=== PATIENT | male | born 1955 | race Caucasian/White ===

== ENCOUNTER 2024-07-11 23:44 | Emergency (ER) | payer OTHER ==
--- OUTSIDE RECORDS SUMMARY | 2024-07-11 23:49 | XMS REPORT | Continuity of Care Document ---
Author Name Unknown Address [address] [facility] [address] [place] [address] [facility] Address [address] 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 Attending Clinician UnavailKhris Reveles Attending Clinician + [phone] Cliff OLIVIER, Sendblair K.H. Attending Clinician + [phone] Gina Miguel Attending Clinician [phone] GINA BANKS Attending Clinician Unavailable GINA BANKS Attending Clinician Unavailable SRINIVAS HODGSON Attending Clinician Unavail able SRINIVAS HODGSON Attending Clinician Unavail able Srinivas Hodgson MD Attending Clinician [phone] Cliff OLIVIER, Sendblair K.H. Attending Clinician + [phone], [facility] Attending Clinician Unavailable SONYA MICHEL Attending Clinician Unavailable Sonya Michel MD Attending Clinician [phone] BRENDA ELMORE Attending Clinician Unavailab BRENDA Sosa Attending Clinician Unavailab Sun Bush Attending Clinician [phone] PAU VALENZUELA Attending Clinician Unavailable PAU VALENZUELA Attending Clinician Unavailable KVNG HANKS Attending Clinician Unavailable Kvng Hanks MD Attending Clinician [phone] Doctor Unassigned, Ink[place] Attending Clinician U clementailNAI Tello Attending Clinician Unavailable Nayeli SALES AND BUSINESS DEVELOPMENT MANAGER, Cynyoselin Attending Clinician +[phone] Ren OLIVIER, Angelo Attending Clinician [phone] ANGELO MCCLURE Attending Clinician Unavailable BO SUN Kirk Attending Clinician Unavailable Sumanth WASHINGTON, Kira Edmond Attending Clinician [phone] Lety OLIVIER, Radha Krause Attending Clinician + Leroy Davidson Attending Clinician [phone] Remi RAO, Ana Wang Attending Clinician Unavailab Donato GABRIEL, Maya Wells Attending Clinician [phone] Chapo OLIVIER, Mehran Attending Clinician [phone] Calderon OLIVIER, Andry Moncada Attending Clinici an RADHA DAVIDSON Attending Clinician Unav bienvenido Drake MD, Breezy Caceres Attending Clinician [phone] CHRISTIAN PATEL Attending Clinician Unavailable Christian Patel MD Attending Clinician [phone] Lorelei Crockett DO Attending Clinician [phone] Chad Lucero MD Attending Clinician [phone] Sergio Drummond DO Attending Clinician +[phone] SERGIO DRUMMOND Attending Clinician Unavailable Neisha RAO, Lucia Attending Clinician Unavailable Steven OLIVIER, Juan Attending Clinician [phone] Linette SMITH, Herbert Salmeron Attending Clinician +[phone] Alison Elizondo MD Attending Clini dirk NAI DENNY Admitting Clinician Unavailable Mehran Cowan MD Admitting Clinician [phone] MEHRAN COWAN Admitting Clinician Unavailable CHRISTIAN PATEL Admitting Clinician Unavailable Chad Lucero MD Admitting Clinician [phone] Linette SMITH, Herbertrachael Salmeron Admitting Clinician [phone] Caro OLIVIER, Alison Crawford Admitting Clini dirk Payers Payer Name Policy Type Policy Number Effective Date Expirati on Date Source Problems Condition Name Condition Details Condition Category Status Onset Date Resolution Date Last Treatment Date Treating Clinician Comments Source 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 Added automatic ally from request for surgery [id number] [facility] NSTEMI (non-ST elevated myocardial infarction ) NSTEMI (non-ST elevated myocardial infarction ) Disease Active 07-22 00:00: 00 [facility] Elevated troponin Elevated troponin Disease Active 02-27 00:00: 00 [facility] Elevated troponin Elevated troponin Disease Active 02-27 00:00: 00 [facility] Appendicit is Appendicit is Disease Active 2016-0215 00:00: [address] [facility] ST elevation myocardial infarction involving right coronary artery ST elevation myocardial infarction involving right coronary artery Disease Active 08-22 00:00: 00 [facility] Chest pain Chest pain Disease Active 08-21 00:00: 00 [facility] ACS (acute coronary syndrome) ACS (acute coronary syndrome) Disease Active 11-10 00:00: 00 [facility] Snake bite Snake bite Disease Active 08-15 00:00: 00 [facility] CAD (coronary artery disease) CAD (coronary artery disease) Disease Active 08-15 00:00: 00 [facility] HTN (hypertens ion) HTN (hypertens ion) Disease Active [facility] HLD (hyperlipi demia) HLD (hyperlipi demia) Disease Active [facility] Allergies, Adverse Reactions, Alerts Allergy Name Allergy Type Status Severity Reaction(s) Onset Date Inactive Date Treating Clinician Comments Source DIAZEPAM DRUG INGREDI Active Anaphylaxis 02-27 00:00: 00 [facility] Diazepam Propensi ty to adverse reaction s Active Anaphylaxis 02-27 00:00: 00 [facility] PENICILL IN DRUG INGREDI Active Rash 08-15 00:00: 00 [facility] Penicill in Propensi ty to adverse reaction s Active Rash 08-15 00:00: 00 [facility] Social History Social Habit Start Date Stop Date Quantity Comments Source Gender identity [facility] History of Occupation [facility] History of tobacco use Cigarette Smoker [facility] History SDOH Alcohol Frequency [facility] History SDOH Alcohol Std Drinks [facility] History SDOH Alcohol Binge [facility] Alcoholic beverage intake 2024-04-17 00:00:00 2024-04-17 00:00:00 3.29 /d [facility] Cigarettes smoked current (pack per day) - Reported 2023-10-07 00:00:00 2023-10-07 00:00:00 [facility] Cigarette pack-years 2023-10-07 00:00:00 2023-10-07 00:00:00 [facility] Tobacco use and exposure 2023-10-07 00:00:00 2023-10-07 00:00:00 Smokeless tobacco non-user [facility] History of Social function 2023-06-07 00:00:00 2023-06-07 00:00:00 [facility] Alcohol intake 2023-06-07 00:00:00 2023-06-07 00:00:00 3.29 /d [facility] Exposure to SARS-CoV-2 (event) 2022-02-08 00:00:00 2022-02-18 10:01:00 Not sure [facility] Alcohol Comment 2021-09-01 00:00:00 2021-09-01 00:00:00 2 beers daily w/ everclear (200 proof liquor) [facility] Tobacco Comment 2021-09-01 00:00:00 2021-09-01 00:00:00 Smoke weed, stopped cigarettes in 1998 [facility] Sex assigned at 1955 00:00:00 1955 00:00:00 [facility] Smoking Status Start Date Stop Date Source Ex-smoker 2023-10-07 00:00:00 2023-10-07 00:00:00 [facility] Medications Ordered Medication Name Filled Medication Name Start Date Stop Date Current Medication? Ordering Clinician Indication Dosage Frequency Signature (SIG) Comments Components Source erythromyci n 5 mg/gram (0.5 %) ophthalmic ointment 07-11 00:00: 00 07-17 04:59 :00 Yes [id number] .5[in_u s] Place 0.5 Inches in left eye 4 times daily for 5 days. Continue until you follow up with eye doctor. [facility] METOPROLOL SUCCINATE XL 50 mg 24 hr tablet 07-04 00:00: 00 Yes 50mg TAKE 1 TABLET BY MOUTH IN THE MORNING AND 1 TABLET IN THE EVENING [facility] doxycycline hyclate 100 mg capsule 04-17 00:00: 00 05-02 04:59 :00 Yes [id number] 100mg Take 1 capsule by mouth in the morning and 1 capsule in the evening. Do all this for 14 days. [facility] clotrimazol e 1 % topical cream 04-17 00:00: 00 04-28 05:59 :00 Yes [id number] Apply to area(s) 2 (two) times daily for 10 days. [facility] nitroglycer in 0.4 mg sublingual tablet 2023-0230 00:00: 00 Yes [id number] DISSOLVE ONE TABLET UNDER THE TONGUE EVERY 5 MINUTES NEEDED FOR CHEST PAIN. DO NOT EXCEED A TOTAL OF 3 DOSES IN 15 MINUTES [facility] cefTRIAXone (ROCEPHIN) injection 500 mg 2023-02 14:15: 00 01-06 13:46 :00 No 500mg 500 mg, Intramuscu lar, ONCE, 1 dose, On 01/07/24 at 0815, EJ, Reason for Anti-Infec tive: Documented Infection, Documented Infection Site: Urine, Duration of Therapy: Once (ED) [facility] doxycycline hyclate 100 mg capsule 2023-02 00:00: 00 01-21 05:59 :00 No [id number] 100mg Take 1 capsule by mouth in the morning and 1 capsule in the evening. Do all this for 14 days. [facility] bempedoic acid (NEXLETOL) 180 mg Tab 08-30 00:00: 00 Yes 180mg Take 180 mg by mouth in the morning. [facility] ezetimibe 10 mg tablet 06-19 00:00: 00 Yes [id number] 10mg Take 1 tablet by mouth in the morning. Please have labs done in 2 months [facility] empaglifloz in (JARDIANCE) 10 mg tablet empaglifloz in (JARDIANCE) 10 mg tablet 06-19 00:00: 00 Yes [id number] 10mg Take 1 tablet by mouth in the morning. [facility] metoprolol succinate XL 50 mg 24 hr tablet 06-06 00:00: 00 07-04 00:00 :00 No 50mg Take 1 tablet by mouth in the morning and 1 tablet in the evening. [facility] atorvastati n 80 mg tablet 04-06 00:00: 00 Yes [id number] 80mg Take 1 tablet by mouth at bedtime. [facility] losartan 50 mg tablet 04-06 00:00: 00 Yes [id number] 50mg Take 1 tablet by mouth in the morning and 1 tablet in the evening. [facility] clopidogreL (PLAVIX) 75 mg tablet 2-14 00:00: 00 Yes [id number] 75mg Take 1 tablet by mouth in the morning. [facility] metoprolol succinate XL 50 mg 24 hr tablet -14 00:00: 00 06-06 00:00 :00 No [id number] 50mg Take 1 tablet by mouth in the morning. [facility] doxycycline hyclate 100 mg capsule - 00:00: 00 Yes [id number] 100mg Take 1 capsule by mouth in the morning and 1 capsule in the evening. [facility] doxycycline hyclate (Vibramycin ) capsule 100 mg 2022-02 11:45: 00 12-25 11:54 :00 No 100mg 100 mg, Oral, ONCE, 1 dose, On 12/25/22 at 0645, EJ
Re ason for Anti-Infec tive: Documented Infection< br>Documen martita Infection Site: Skin / Soft Tissue
Duration of Therapy: 10 days [facility] doxycycline hyclate 100 mg capsule 2022-02 00:00: 00 04-05 00:00 :00 No [id number] 100mg Take 1 capsule by mouth in the morning and 1 capsule in the evening. [facility] METOPROLOL SUCCINATE XL 50 mg 24 hr tablet 2022-02 0-20 00:00: 00 04-06 00:00 :00 No [id number] 50mg TAKE 1 TABLET BY MOUTH IN THE MORNING [facility] azithromyci n (ZITHROMAX) tablet 2,000 mg 9- 02:45: 00 10-22 02:46 :00 No 2000mg 2,000 mg, Oral, ONCE, 1 dose, On Elvira 10/21/22 at 2145, EJ
Re ason for Anti-Infec tive: Empiric Therapy for Suspected Infection< br>Empiric Therapy Site: Pelvic
Duration of therapy: 72 hours [facility] doxycycline hyclate 100 mg capsule 8-31 00:00: 00 12-25 00:00 :00 No [id number] 100mg Take 1 capsule by mouth in the morning and 1 capsule in the evening. [facility] metoprolol tartrate 50 mg tablet 2021-02 0 08:48: 34 12-15 00:00 :00 No 50mg Take 50 mg by mouth in the morning and 50 mg in the evening. [facility] Blood-Gl & BP Meter,Adult [place] 2021-02 0 00:00: 00 Yes [id number] Use as directed [facility] Blood-Gl & BP Meter,Adult [place] 2021-02 00:00: 00 Yes [id number] Use as directed [facility] spironolact one 25 mg tablet 2021-02 00:00: 00 04-06 00:00 :00 No [id number] 25mg Take 1 tablet by mouth in the morning. [facility] losartan 50 mg tablet 2021-02 00:00: 00 04-06 00:00 :00 No [id number] 50mg Take 1 tablet by mouth in the morning and 1 tablet in the evening. [facility] carvediloL (COREG) 25 mg tablet 2021-02 0 00:00: 00 04-06 00:00 :00 No [id number] 25mg Take 1 tablet by mouth in the morning and 1 tablet in the evening. Take with meals. [facility] sacubitriL- valsartan 24-26 mg tablet 2021-02 0 00:00: 00 12-15 00:00 :00 No [id number] 1{tbl} Take 1 tablet by mouth in the morning and 1 tablet in the evening. [facility] metoprolol succinate XL 50 mg 24 hr tablet 2021-02 0 00:00: 00 12-15 00:00 :00 No [id number] 50mg Take 1 tablet by mouth in the morning. [facility] foLIC acid 1 mg tablet 7-16 00:00: 00 Yes 1mg Take 1 tablet by mouth in the morning. [facility] thiamine 100 mg tablet 09-05 00:00: 00 Yes 100mg Take 1 tablet by mouth in the morning. [facility] atorvastati n 80 mg tablet 09-05 00:00: 00 04-06 00:00 :00 No [id number] 80mg Take 1 tablet by mouth at bedtime. [facility] spironolact one 25 mg tablet 09-05 00:00: 00 10-06 04:59 :00 No [id number] 9109 25mg Take 1 tablet by mouth in the morning for 30 days. [facility] SERTraline 50 mg tablet 09-05 00:00: 00 10-06 04:59 :00 No [id number] 50mg Take 1 tablet by mouth in the morning for 30 days. [facility] ezetimibe 10 mg tablet 09-05 00:00: 00 10-06 04:59 :00 No [id number] 10mg Take 1 tablet by mouth in the morning for 30 days. [facility] carvediloL 25 mg tablet 09-05 00:00: 00 10-06 04:59 :00 No [id number] 9109 25mg Take 1 tablet by mouth in the morning and 1 tablet in the evening. Take with meals. Do all this for 30 days. [facility] losartan 50 mg tablet 09-05 00:00: 00 10-06 04:59 :00 No [id number] 50mg Take 1 tablet by mouth in the morning and 1 tablet in the evening. Do all this for 30 days. [facility] nitroglycer in 0.4 mg sublingual tablet 2020-02 00:00: 00 02-19 00:00 :[id number] 1 tablet under the tongue every 5 (five) minutes as needed for Chest pain for up to 30 doses. [facility] clopidogreL (PLAVIX) 75 mg tablet 2020-02 00:00: 00 04-06 00:00 :00 No [id number] 75mg Take 1 tablet by mouth daily. [facility] aspirin 81 mg chewable tablet 07-23 00:00: 00 Yes [id number] 81mg Take 1 tablet by mouth daily. [facility] Immunizations Ordered Immunization Name Filled Immunization Name Date Status Comments Source Pneumococcal Polysaccharide, PPSV23 (PNEUMOVAX) 2015-11-12 00:00:00 Completed [facility] Pneumococcal Polysaccharide, PPSV23 (PNEUMOVAX) 2015-11-12 00:00:00 Completed [facility] Pneumococcal Polysaccharide, PPSV23 (PNEUMOVAX) 2015-11-12 00:00:00 Completed [facility] Pneumococcal Polysaccharide, PPSV23 (PNEUMOVAX) 2015-11-12 00:00:00 Completed [facility] Pneumococcal Polysaccharide, PPSV23 (PNEUMOVAX) 2015-11-12 00:00:00 Completed [facility] Pneumococcal Polysaccharide, PPSV23 (PNEUMOVAX) 2015-11-12 00:00:00 Completed [facility] Pneumococcal Polysaccharide, PPSV23 (PNEUMOVAX) 2015-11-12 00:00:00 Completed [facility] Pneumococcal Polysaccharide, PPSV23 (PNEUMOVAX) 2015-11-12 00:00:00 Completed [facility] Pneumococcal Polysaccharide, PPSV23 (PNEUMOVAX) 2015-11-12 00:00:00 Completed [facility] Pneumococcal Polysaccharide, PPSV23 (PNEUMOVAX) 2015-11-12 00:00:00 Completed [facility] Pneumococcal Polysaccharide, PPSV23 (PNEUMOVAX) 2015-11-12 00:00:00 Completed [facility] Pneumococcal Polysaccharide, PPSV23 (PNEUMOVAX) 2015-11-12 00:00:00 Completed [facility] Pneumococcal Polysaccharide, PPSV23 (PNEUMOVAX) 2015-11-12 00:00:00 Completed [facility] Pneumococcal Polysaccharide, PPSV23 (PNEUMOVAX) 2015-11-12 00:00:00 Completed [facility] Pneumococcal Polysaccharide, PPSV23 (PNEUMOVAX) 2015-11-12 00:00:00 Completed [facility] Pneumococcal Polysaccharide, PPSV23 (PNEUMOVAX) 2015-11-12 00:00:00 Completed [facility] Pneumococcal Polysaccharide, PPSV23 (PNEUMOVAX) 2015-11-12 00:00:00 Completed [facility] Pneumococcal Polysaccharide, PPSV23 (PNEUMOVAX) 2015-11-12 00:00:00 Completed [facility] Pneumococcal Polysaccharide, PPSV23 (PNEUMOVAX) 2015-11-12 00:00:00 Completed [facility] Pneumococcal Polysaccharide, PPSV23 (PNEUMOVAX) 2015-11-12 00:00:00 Completed [facility] Td 2015-08-17 00:00:00 Completed [facility] Td 2015-08-17 00:00:00 Completed [facility] Td 2015-08-17 00:00:00 Completed [facility] Td 2015-08-17 00:00:00 Completed [facility] Td 2015-08-17 00:00:00 Completed [facility] Td 2015-08-17 00:00:00 Completed [facility] Td 2015-08-17 00:00:00 Completed [facility] Td 2015-08-17 00:00:00 Completed [facility] Td 2015-08-17 00:00:00 Completed [facility] Td 2015-08-17 00:00:00 Completed [facility] Td 2015-08-17 00:00:00 Completed [facility] Td 2015-08-17 00:00:00 Completed [facility] TD, NOS 2015-08-17 00:00:00 Completed [facility] TD, NOS 2015-08-17 00:00:00 Completed [facility] TD, NOS 2015-08-17 00:00:00 Completed [facility] TD, NOS 2015-08-17 00:00:00 Completed [facility] TD, NOS 2015-08-17 00:00:00 Completed [facility] TD, NOS 2015-08-17 00:00:00 Completed [facility] TD, NOS 2015-08-17 00:00:00 Completed [facility] TD, NOS 2015-08-17 00:00:00 Completed [facility] TD, NOS Unknown Completed [facility] Pneumococcal Polysaccharide, PPSV23 (PNEUMOVAX) Unknown Completed [facility] TD, NOS Unknown Completed [facility] Pneumococcal Polysaccharide, PPSV23 (PNEUMOVAX) Unknown Completed [facility] TD, NOS Unknown Completed [facility] Pneumococcal Polysaccharide, PPSV23 (PNEUMOVAX) Unknown Completed [facility] TD, NOS Unknown Completed [facility] Pneumococcal Polysaccharide, PPSV23 (PNEUMOVAX) Unknown Completed [facility] TD, NOS Unknown Completed [facility] Pneumococcal Polysaccharide, PPSV23 (PNEUMOVAX) Unknown Completed [facility] TD, NOS Unknown Completed [facility] Pneumococcal Polysaccharide, PPSV23 (PNEUMOVAX) Unknown Completed [facility] TD, NOS Unknown Completed [facility] Pneumococcal Polysaccharide, PPSV23 (PNEUMOVAX) Unknown Completed [facility] TD, NOS Unknown Completed [facility] Pneumococcal Polysaccharide, PPSV23 (PNEUMOVAX) Unknown Completed [facility] TD, NOS Unknown Completed [facility] Pneumococcal Polysaccharide, PPSV23 (PNEUMOVAX) Unknown Completed [facility] TD, NOS Unknown Completed [facility] Pneumococcal Polysaccharide, PPSV23 (PNEUMOVAX) Unknown Completed [facility] TD, NOS Unknown Completed [facility] Pneumococcal Polysaccharide, PPSV23 (PNEUMOVAX) Unknown Completed [facility] TD, NOS Unknown Completed [facility] Pneumococcal Polysaccharide, PPSV23 (PNEUMOVAX) Unknown Completed [facility] TD, NOS Unknown Completed [facility] Pneumococcal Polysaccharide, PPSV23 (PNEUMOVAX) Unknown Completed [facility] TD, NOS Unknown Completed [facility] Pneumococcal Polysaccharide, PPSV23 (PNEUMOVAX) Unknown Completed [facility] TD, NOS Unknown Completed [facility] Pneumococcal Polysaccharide, PPSV23 (PNEUMOVAX) Unknown Completed [facility] TD, NOS Unknown Completed [facility] Pneumococcal Polysaccharide, PPSV23 (PNEUMOVAX) Unknown Completed [facility] Vital Signs Vital Name Observation Time Observation Value Comments S ource Systolic blood pressure 2024-07-12 02:51:00 138 mm[Hg] [facility] Diastolic blood pressure 2024-07-12 02:51:00 76 mm[Hg] [facility] Heart rate 2024-07-12 02:51:00 60 /min [facility] Body temperature 2024-07-12 02:51:00 36.61 Patricia [facility] Respiratory rate 2024-07-12 02:51:00 16 /min [facility] Body height 2024-07-12 02:51:00 188 cm [facility] Body weight 2024-07-12 02:51:00 74.844 kg [facility] BMI 2024-07-12 02:51:00 21.18 kg/m2 [facility] Oxygen saturation in Arterial blood by Pulse oximetry 2024-07-12 02:51:00 99 /min [facility] Systolic blood pressure 2024-04-17 09:30:00 175 mm[Hg] [facility] Diastolic blood pressure 2024-04-17 09:30:00 87 mm[Hg] [facility] Heart rate 2024-04-17 09:30:00 62 /min [facility] Body temperature 2024-04-17 09:30:00 36.78 Patricia [facility] Respiratory rate 2024-04-17 09:30:00 18 /min [facility] Oxygen saturation in Arterial blood by Pulse oximetry 2024-04-17 09:30:00 98 /min [facility] Body height 2024-04-17 07:14:00 182.9 cm [facility] Body weight 2024-04-17 07:14:00 75.887 kg [facility] BMI 2024-04-17 07:14:00 22.69 kg/m2 [facility] Systolic blood pressure 2024-04-10 14:57:00 139 mm[Hg] [facility] Diastolic blood pressure 2024-04-10 14:57:00 79 mm[Hg] [facility] Heart rate 2024-04-10 14:57:00 50 /min [facility] Respiratory rate 2024-04-10 14:57:00 18 /min [facility] Body height 2024-04-10 14:57:00 188 cm [facility] Body weight 2024-04-10 14:57:00 76.023 kg [facility] BMI 2024-04-10 14:57:00 21.52 kg/m2 [facility] Oxygen saturation in Arterial blood by Pulse oximetry 2024-04-10 14:57:00 98 /min [facility] Systolic blood pressure 2024-01-07 15:02:00 142 mm[Hg] [facility] Diastolic blood pressure 2024-01-07 15:02:00 68 mm[Hg] [facility] Heart rate 2024-01-07 15:02:00 54 /min [facility] Body temperature 2024-01-07 15:02:00 36.56 Patricia [facility] Respiratory rate 2024-01-07 15:02:00 16 /min [facility] Oxygen saturation in Arterial blood by Pulse oximetry 2024-01-07 15:02:00 99 /min [facility] Body height 2024-01-07 12:24:00 188 cm [facility] Body weight 2024-01-07 12:24:00 72.576 kg [facility] BMI 2024-01-07 12:24:00 20.54 kg/m2 [facility] Systolic blood pressure 2023-10-07 14:36:00 138 mm[Hg] [facility] Diastolic blood pressure 2023-10-07 14:36:00 65 mm[Hg] [facility] Heart rate 2023-10-07 14:36:00 49 /min [facility] Respiratory rate 2023-10-07 14:36:00 19 /min [facility] Body height 2023-10-07 14:36:00 185.4 cm [facility] Body weight 2023-10-07 14:36:00 74.481 kg [facility] BMI 2023-10-07 14:36:00 21.66 kg/m2 [facility] Oxygen saturation in Arterial blood by Pulse oximetry 2023-10-07 14:36:00 99 /min [facility] Systolic blood pressure 2023-06-07 13:52:00 122 mm[Hg] [facility] Diastolic blood pressure 2023-06-07 13:52:00 61 mm[Hg] [facility] Heart rate 2023-06-07 13:52:00 67 /min [facility] Body temperature 2023-06-07 13:52:00 36.22 Patricia [facility] Respiratory rate 2023-06-07 13:52:00 18 /min [facility] Body height 2023-06-07 13:52:[address] [facility] Body weight 2023-06-07 13:52:00 76.25 kg [facility] BMI 2023-06-07 13:52:00 21.58 kg/m2 [facility] Oxygen saturation in Arterial blood by Pulse oximetry 2023-06-07 13:52:00 98 /min [facility] Systolic blood pressure 2023-04-06 19:09:00 137 mm[Hg] [facility] Diastolic blood pressure 2023-04-06 19:09:00 88 mm[Hg] [facility] Heart rate 2023-04-06 19:09:00 77 /min [facility] Body temperature 2023-04-06 19:09:00 36.78 Patricia [facility] Respiratory rate 2023-04-06 19:09:00 18 /min [facility] Body height 2023-04-06 19:09:[address] [facility] Body weight 2023-04-06 19:09:00 74.753 kg [facility] BMI 2023-04-06 19:09:00 21.16 kg/m2 [facility] Oxygen saturation in Arterial blood by Pulse oximetry 2023-04-06 19:09:00 99 /min [facility] Systolic blood pressure 2023-04-05 14:57:00 202 mm[Hg] [facility] Diastolic blood pressure 2023-04-05 14:57:00 110 mm[Hg] [facility] Heart rate 2023-04-05 14:57:00 100 /min [facility] Body temperature 2023-04-05 14:57:00 36.89 Patricia [facility] Respiratory rate 2023-04-05 14:57:00 20 /min [facility] Body height 2023-04-05 14:57:00 188 cm [facility] Body weight 2023-04-05 14:57:00 70.308 kg [facility] BMI 2023-04-05 14:57:00 19.90 kg/m2 [facility] Oxygen saturation in Arterial blood by Pulse oximetry 2023-04-05 14:57:00 100 /min [facility] Systolic blood pressure 2022-12-25 12:15:57 140 mm[Hg] [facility] Diastolic blood pressure 2022-12-25 12:15:57 72 mm[Hg] [facility] Heart rate 2022-12-25 12:15:57 50 /min [facility] Respiratory rate 2022-12-25 12:15:57 20 /min [facility] Oxygen saturation in Arterial blood by Pulse oximetry 2022-12-25 12:15:57 100 /min [facility] Body temperature 2022-12-25 11:16:00 36.33 Patricia [facility] Body weight 2022-12-25 11:16:00 72.576 kg [facility] BMI 2022-12-25 11:16:00 21.70 kg/m2 [facility] Systolic blood pressure 2022-10-22 02:42:33 160 mm[Hg] [facility] Diastolic blood pressure 2022-10-22 02:42:33 90 mm[Hg] [facility] Heart rate 2022-10-22 02:42:33 70 /min [facility] Respiratory rate 2022-10-22 02:42:33 16 /min [facility] Oxygen saturation in Arterial blood by Pulse oximetry 2022-10-22 02:42:33 98 /min [facility] Body temperature 2022-10-22 02:08:00 36.78 Patricia [facility] Body height 2022-10-22 02:08:00 182.9 cm [facility] Body weight 2022-10-22 02:08:[address] [facility] BMI 2022-10-22 02:08:00 20.34 kg/m2 Univ [facility] Systolic blood pressure 2022-08-24 04:30:00 176 mm[Hg] [facility] Diastolic blood pressure 2022-08-24 04:30:00 90 mm[Hg] [facility] Heart rate 2022-08-24 04:30:00 87 /min [facility] Body temperature 2022-08-24 04:30:00 37 Patricia [facility] Respiratory rate 2022-08-24 04:30:00 17 /min [facility] Body height 2022-08-24 04:30:00 188 cm [facility] Body weight 2022-08-24 04:30:00 72.576 kg [facility] BMI 2022-08-24 04:30:00 20.54 kg/m2 [facility] Oxygen saturation in Arterial blood by Pulse oximetry 2022-08-24 04:30:00 97 /min [facility] Systolic blood pressure 2021-12-31 16:08:00 119 mm[Hg] [facility] Diastolic blood pressure 2021-12-31 16:08:00 58 mm[Hg] [facility] Heart rate 2021-12-31 16:08:00 50 /min [facility] Body temperature 2021-12-31 16:08:00 36.28 Patricia [facility] Body weight 2021-12-31 16:08:00 71.804 kg [facility] BMI 2021-12-31 16:08:00 20.32 kg/m2 [facility] Oxygen saturation in Arterial blood by Pulse oximetry 2021-12-31 16:08:00 99 /min [facility] Systolic blood pressure 2021-12-15 21:14:00 144 mm[Hg] [facility] Diastolic blood pressure 2021-12-15 21:14:00 76 mm[Hg] [facility] Heart rate 2021-12-15 21:14:00 64 /min [facility] Body temperature 2021-12-15 21:14:00 36.44 Patricia [facility] Respiratory rate 2021-12-15 21:14:00 18 /min [facility] Body weight 2021-12-15 21:14:00 71.668 kg [facility] BMI 2021-12-15 21:14:00 20.29 kg/m2 [facility] Oxygen saturation in Arterial blood by Pulse oximetry 2021-12-15 21:14:00 98 /min [facility] Systolic blood pressure 2021-12-15 13:12:00 161 mm[Hg] [facility] Diastolic blood pressure 2021-12-15 13:12:00 77 mm[Hg] [facility] Heart rate 2021-12-15 13:08:00 57 /min [facility] Body weight 2021-12-15 13:08:00 71.668 kg [facility] BMI 2021-12-15 13:08:00 20.29 kg/m2 [facility] Oxygen saturation in Arterial blood by Pulse oximetry 2021-12-15 13:08:00 100 /min [facility] Procedures Procedure Date / Time Performed Performing Clinician Source URINALYSIS 2024-04-17 07:52:00 Gina Banks [facility] HIV 1/2 AG-AB WITH REFLEX 2024-04-17 07:33:00 Gina Banks [facility] URINALYSIS 2024-01-07 14:17:00 Srinivas Hodgson [facility] COMP. METABOLIC PANEL (36423) 2023-06-13 13:10:00 Renita Joyner [facility] LIPID PANEL (57207)(TOTAL CHOLESTEROL, TRIGLYCERIDES, HDL) 2023-06-13 13:10:00 Renita Joyner [facility] CBC WITH DIFF 2023-06-13 13:10:00 Renita Joyner [facility] GLYCOSYLATED HEMOGLOBIN (A1C) 2023-06-13 13:10:00 Renita Joyner [facility] ASSIGNMENT OF BENEFITS 2023-04-05 15:24:04 Docto r Unassigned, [place] [facility] CONSENT/REFUSAL FOR DIAGNOSIS AND TREATMENT 2023-04-05 14:49:25 Doctor Unassigned, [place] [facility] CONSENT/REFUSAL FOR DIAGNOSIS AND TREATMENT 2022-12-25 11:11:03 Doctor Unassigned, [place] [facility] BASIC METABOLIC PANEL (NA, K, CL, CO2, GLUCOSE, BUN, CREATININE, CA) 2022-10-22 02:46:00 Kvng Hanks [facility] CBC WITH DIFF 2022-10-22 02:46:00 Kvng Hanks [facility] CONSENT/REFUSAL FOR DIAGNOSIS AND TREATMENT 2022-10-22 02:04:48 Doctor Unassigned, [place] [facility] INSURANCE CORRESPONDENCE 2022-09-28 05:01:00 Doc tor Unassigned, [place] [facility] ASSIGNMENT OF BENEFITS 2022-08-24 06:00:53 Docto r Unassigned, [place] [facility] XR CHEST 2 VW 2022-08-24 05:38:[address] [facility] RAPID STREP SCREEN FOR GROUP A 2022-08-24 04:45:00 Nai Denny [facility] RAPID INFLUENZA A/B 2022-08-24 04:45:00 Nai Denny [facility] COVID-19 (ID NOW RAPID TESTING) 2022-08-24 04:45:00 Nai Denny [facility] INSURANCE CORRESPONDENCE 2022-06-21 05:01:00 Doc tor Unassigned, [place] [facility] INSURANCE CORRESPONDENCE 2022-04-21 06:01:00 Doc tor Unassigned, [place] [facility] INSURANCE CORRESPONDENCE 2022-03-16 06:01:00 Doc tor Unassigned, [place] [facility] AUTHORIZATION FOR RELEASE OF PHI 2021-12-17 05:01:00 Doctor Unassigned, [place] [facility] BASIC METABOLIC PANEL (NA, K, CL, CO2, GLUCOSE, BUN, CREATININE, CA) 2021-12-15 21:23:00 Kira Julio [facility] ASSIGNMENT OF BENEFITS 2021-12-15 13:00:17 Docto r Unassigned, [place] [facility] Plan of Care Planned Activity Planned Date Details Comments Source Medication 2024-07-12 03:45:00 fluorescein (FUL-MEGAN) 1 mg ophthalmic strip 1 Strip [code = 77154] [facility] Medication 2024-07-12 03:45:00 tetracaine (PONTOCAINE) 0.5 % ophthalmic drops 1 Drop [code = 9501420] [facility] Encounters Start Date/Time End Date/Time Encounter Type Admission Type Attending [facility] Care Department Encounter ID Source 2024-10-08 10:00:00 2024-10-08 10:00:00 Outpatient R RENITA JOYNER [facility] [id number] [facility] 2024-07-11 21:54:00 2024-07-11 22:19:00 Emergency Khris Morley [facility] 1.840.114 350.1.13.10 4.2.7.2.686 [id number] [facility] 2024-07-04 00:00:00 2024-07-04 13:54:26 Renita Lam [facility] 1..840.114 350.1.13.10 4.2.7.2.686 [id number] [facility] 2024-05-16 08:00:00 2024-05-16 08:00:00 Outpatient R [facility] [id number] [facility] 2024-04-17 01:17:00 2024-04-17 03:37:00 Emergency Gina Banks [facility] 1..840.114 350.1.13.10 4.2.7.2.686 [id number] [facility] 2024-04-17 01:17:00 2024-04-17 03:37:00 Emergency X GINA BANKS [facility] ERT [id number] [facility] 2024-04-10 09:00:00 2024-04-10 09:21:35 Outpatient R RENITA JOYNER [facility] [id number] [facility] 2024-04-10 09:00:00 2024-04-10 09:21:35 Office Visit Renita Joyner [facility] 1.2.840.114 350.1.13.10 4.2.7.2.686 [id number] [facility] 2024-02-17 00:00:00 2024-02-20 10:09:12 Refill Renita Joyner [facility] 1.2.840.114 350.1.13.10 4.2.7.2.686 [id number] [facility] 2024-01-07 06:30:00 2024-01-07 09:21:00 Emergency X SRINIVAS HODGSON JO[facility]PH [facility] ERT [id number] [facility] 2024-01-07 06:30:00 2024-01-07 09:21:00 Emergency Srinivas Hodgson [facility] 1.2.840.114 350.1.13.10 4.2.7.2.686 [id number] [facility] 2023-10-07 09:30:00 2023-10-07 10:15:59 Outpatient R RENITA JOYNER [facility] [id number] [facility] 2023-10-07 09:30:00 2023-10-07 10:15:59 Office Visit Renita Joyner [facility] 1.2.840.114 350.1.13.10 4.2.7.2.686 [id number] [facility] 2023-09-06 00:00:00 2023-09-06 11:46:44 Telephone Renita Joyner [facility] 1.2.840.114 350.1.13.10 4.2.7.2.686 [id number] [facility] 2023-08-31 00:00:00 2023-08-31 09:02:26 Telephone Renita Joyner [facility] 1.2.840.114 350.1.13.10 4.2.7.2.686 [id number] [facility] 2023-08-24 16:15:00 2023-08-24 16:30:00 Application Design Engineer Visit 2, Adc Lab Renita Joyner [facility] 1.2.840.114 350.1.13.10 4.2.7.2.686 [id number] [facility] 2023-08-24 16:15:00 2023-08-24 16:15:00 Outpatient R RENITA JOYNER [facility] [id number] [facility] 2023-06-17 00:00:00 2023-06-17 00:00:00 Telephone Renita Joyner [facility] 1.2.840.114 350.1.13.10 4.2.7.2.686 [id number] [facility] 2023-06-13 08:15:00 2023-06-13 08:32:53 Outpatient R RENITA JOYNER [facility] [id number] [facility] 2023-06-13 08:15:00 2023-06-13 08:32:53 Application Design Engineer Visit 2, Adc Lab Katy Joynerblair AlfredoPj [facility] 1.2.840.114 350.1.13.10 4.2.7.2.686 [id number] [facility] 2023-06-09 00:00:00 2023-06-09 00:00:00 Telephone Renita Joyner AlfredoPj [facility] 1.2.840.114 350.1.13.10 4.2.7.2.686 [id number] [facility] 2023-06-07 09:00:00 2023-06-07 09:12:42 Outpatient R RENITA JOYNER [facility] [id number] [facility] 2023-06-07 09:00:00 2023-06-07 09:12:42 Office Visit Renita Joyner AlfredoPj [facility] 1.2.840.114 350.1.13.10 4.2.7.2.686 [id number] [facility] 2023-04-06 13:20:00 2023-04-06 13:48:00 [facility] [id number] [facility] 2023-04-06 13:20:00 2023-04-06 13:48:00 [facility] 1.2.840.114 350.1.13.10 4.2.7.2.686 [id number] [facility] 2023-04-05 08:59:00 2023-04-05 09:25:00 Emergency X BRENDA ELMORE [facility] ERT [id number] [facility] 2023-04-05 08:59:00 2023-04-05 09:25:00 Emergency Brenda Elmore [facility] 1.2.840.114 350.1.13.10 4.2.7.2.686 [id number] [facility] 2023-04-05 00:00:00 2023-04-05 00:00:00 Refill Sonya Michel [facility] 1.2.840.114 350.1.13.10 4.2.7.2.686 [id number] [facility] 2023-04-04 00:00:00 2023-04-04 00:00:00 Refill Sun [facility] 1.2.840.114 350.1.13.10 4.2.7.2.686 [id number] [facility] 2023-03-15 00:00:00 2023-03-15 00:00:00 Refill Sun Soriano [facility] 1.2.840.114 350.1.13.10 4.2.7.2.686 [id number] [facility] 2022-12-25 06:19:00 2022-12-25 07:33:00 Emergency X PAU VALENZUELA TIMOTHY [facility] [id number] [facility] 2022-12-25 06:19:00 2022-12-25 07:33:00 Emergency Pau Valenzuela [facility] 1.2.840.114 350.1.13.10 4.2.7.2.686 [id number] [facility] 2022-12-08 00:00:00 2022-12-08 00:00:00 Refill Sun Soriano [facility] 1.2.840.114 350.1.13.10 4.2.7.2.686 [id number] [facility] 2022-12-04 00:00:00 2022-12-04 00:00:00 Sun Rubio [facility] 1.2.840.114 350.1.13.10 4.2.7.2.686 [id number] [facility] 2022-10-21 21:09:00 2022-10-21 22:56:00 Emergency X KVNG HANKS [facility] ERT [id number] [facility] 2022-10-21 21:09:00 2022-10-21 22:56:00 Emergency Kvng Hanks [facility] 1.2840.114 350.1.13.10 4.2.7.2.686 [id number] [facility] 2022-09-28 00:00:00 2022-09-28 00:00:00 Orders Only Doctor Unassigned, [place] [facility] 1.2840.114 350.1.13.10 4.2.7.2.686 [id number] [facility] 2022-08-23 23:40:00 2022-08-24 01:14:00 Emergency X NAI DENNY [facility] ERT [id number] [facility] 2022-08-23 23:40:00 2022-08-24 01:14:00 Emergency NayeliNai ibrahim [facility] 1.2.840.114 350.1.13.10 4.2.7.2.686 [id number] [facility] 2022-06-21 00:00:00 2022-06-21 00:00:00 Orders Only Doctor Unassigned, [place] [facility] 1.2840.114 350.1.13.10 4.2.7.2.686 [id number] [facility] 2022-04-21 00:00:00 2022-04-21 00:00:00 Orders Only Doctor Unassigned, [place] [facility] 1.2840.114 350.1.13.10 4.2.7.2.686 [id number] [facility] 2022-03-16 00:00:00 2022-03-16 00:00:00 Orders Only Doctor Unassigned, [place] [facility] 1.2840.114 350.1.13.10 4.2.7.2.686 [id number] [facility] 2022-03-07 00:00:00 2022-03-07 00:00:00 Telephone Angelo Mcclure [facility] 1..840.114 350.1.13.10 4.2.7.2.686 [id number] [facility] 2022-02-18 08:30:00 2022-02-18 23:59:00 Outpatient Guerline MCCLURE ANGELO [facility] [id number] [facility] 2022-02-18 10:20:00 2022-02-18 10:20:00 Outpatient ANGELO PELAYO [facility] [id number] [facility] 2022-02-16 09:00:00 2022-02-16 09:00:00 Outpatient SONYA LAYNE [facility] [id number] [facility] 2022-01-18 16:30:00 2022-01-18 16:30:00 Outpatient R REN ANGELO [facility] [id number] [facility] 2022-01-07 09:40:00 2022-01-07 09:40:00 Outpatient ANGELO PELAYO [facility] [id number] [facility] 2022-01-01 00:00:00 2022-01-01 00:00:00 Telephone Sun Soriano [facility] 1.2.840.114 350.1.13.10 4.2.7.2.686 [id number] [facility] 2021-12-31 08:38:04 2021-12-31 23:59:00 Outpatient R SUN SORIANO [facility] [id number] [facility] 2021-12-31 11:20:00 2021-12-31 11:20:00 Office Visit RenHuseyinf [facility] 1.2840.114 350.1.13.10 4.2.7.2.686 [id number] [facility] 2021-12-17 00:00:00 2021-12-17 00:00:00 Orders Only Doctor Unassigned, [place] [facility] 1.20.114 350.1.13.10 4.2.7.2.686 [id number] [facility] 2021-12-15 16:15:00 2021-12-15 17:22:00 Emergency Kira Julio [facility] 1.20.114 350.1.13.10 4.2.7.2.686 [id number] [facility] 2021-12-15 10:30:00 2021-12-15 10:30:00 Application Design Engineer Visit 2, Adc Lab Sun Soriano [facility] 1.2.114 350.1.13.10 4.2.7.2.686 [id number] [facility] 2021-12-15 08:00:00 2021-12-15 09:08:47 Outpatient R SUN SORIANO [facility] [id number] [facility] 2021-12-15 08:00:00 2021-12-15 09:08:47 Office Visit Sun Soriano [facility] 1.2.114 350.1.13.10 4.2.7.2.686 [id number] [facility] 2021-12-15 08:00:00 2021-12-15 09:08:47 Outpatient R SUN SORIANO ALNADER ERT [id number] [facility] 2021-12-15 00:00:00 2021-12-15 00:00:00 Orders Only Doctor Unassigned, [place] [facility] 1.2.840.114 350.1.13.10 4.2.7.2.686 [id number] [facility] 2021-12-15 00:00:00 2021-12-15 00:00:00 Telephone Sun Soriano [facility] 1.2.840.114 350.1.13.10 4.2.7.2.686 [id number] [facility] 2021-12-15 00:00:00 2021-12-15 00:00:00 Telephone Sun Soriano [facility] 1.2.840.114 350.1.13.10 4.2.7.2.686 [id number] [facility] 2021-10-01 00:00:00 2021-10-01 00:00:00 Letter (Out) Radha Davidson [facility] 1.2.840.114 350.1.13.10 4.2.7.2.686 [id number] [facility] 2021-09-25 00:00:00 2021-09-25 00:00:00 [facility] 1.2.840.114 350.1.13.10 4.2.7.2.686 [id number] [facility] 2021-09-16 00:00:00 2021-09-16 00:00:[address] [facility] 1.2.840.114 350.1.13.10 4.2.7.2.686 [id number] [facility] 2021-09-10 00:00:00 2021-09-10 00:00:00 [facility] 1.2.840.114 350.1.13.10 4.2.7.2.686 [id number] [facility] 2021-09-07 00:00:00 2021-09-07 00:00:00 Transition of Care Ana Khalil 1.2.840.114 350.1.13.10 4.2.7.2.686 [id number] [facility] 2021-08-30 15:24:00 2021-09-05 12:45:00 Hospital Encounter Maya Yan, Mehran Henry, Andry Moncada [facility] 1.2.840.114 350.1.13.10 4.2.7.2.686 [id number] [facility] 2021-08-30 15:24:00 2021-09-05 12:45:00 Inpatient X [facility] [id number] [facility] 2021-09-04 12:00:00 2021-09-04 13:00:00 Surgery Angelo Mcclure [facility] 1.2.840.114 350.1.13.10 4.2.7.2.686 [id number] [facility] 2021-09-02 13:49:00 2021-09-02 15:49:00 Surgery Breezy Drake [facility] 1.2.840.114 350.1.13.10 4.2.7.2.686 [id number] [facility] 2021-09-02 00:00:00 2021-09-02 00:00:00 Telephone Radha Davidson [facility] 1.2840.114 350.1.13.10 4.2.7.2.686 [id number] [facility] 2021-08-11 00:00:00 2021-08-11 00:00:00 Orders Only Doctor Unassigned, [place] [facility] 1.2840.114 350.1.13.10 4.2.7.2.686 [id number] [facility] 2021-05-14 07:47:00 2021-05-14 10:40:00 Emergency X JORGE CHRISTIAN [facility] ERT [id number] [facility] 2021-05-14 07:47:00 2021-05-14 10:40:00 Emergency Christian Patel [facility] 1.2840.114 350.1.13.10 4.2.7.2.686 [id number] [facility] 2021-05-13 00:00:00 2021-05-13 00:00:00 Orders Only Doctor Unassigned, [place] [facility] 1.2840.114 350.1.13.10 4.2.7.2.686 [id number] [facility] 2021-05-08 00:00:00 2021-05-08 00:00:00 Telephone Renita Joyner [facility] 1.2840.114 350.1.13.10 4.2.7.2.686 [id number] [facility] 2021-05-08 00:00:00 2021-05-08 00:00:00 Orders Only Doctor Unassigned, [place] [facility] 1.2840.114 350.1.13.10 4.2.7.2.686 [id number] [facility] 2021-04-20 09:00:00 2021-04-20 09:00:00 Outpatient R RENITA JOYNER [facility] [id number] [facility] 2021-02-17 08:00:00 2021-02-17 08:00:00 Outpatient R RENITA JOYNER [facility] [id number] [facility] 2021-02-03 00:00:00 2021-02-03 00:00:00 Orders Only Doctor Unassigned, [place] [facility] 1..840.114 350.1.13.10 4.2.7.2.686 [id number] [facility] 2021-02-02 13:00:00 2021-02-02 13:00:00 Outpatient R RENITA JOYNER [facility] [id number] [facility] 2021-02-02 11:07:34 2021-02-02 11:55:34 Office Visit Renita JoynerHPj [facility] [id number] 350.1.13.10 4.2.7.2.686 [id number] [facility] 2021-02-02 11:00:00 2021-02-02 11:55:34 Outpatient R RENITA JOYNER [facility] [id number] [facility] 2021-01-26 14:00:00 2021-01-26 14:00:00 Outpatient R RENITA JOYNER [facility] [id number] [facility] 2020-12-26 00:00:00 2020-12-26 00:00:00 Telephone Renita Joyner [facility] 1.2.840.114 350.1.13.10 4.2.7.2.686 [id number] [facility] 2020-10-31 11:03:13 2020-10-31 12:12:29 Office Visit Renita Joyner [facility] 1.2.840.114 350.1.13.10 4.2.7.2.686 [id number] [facility] 2020-10-31 11:00:00 2020-10-31 11:00:00 Outpatient R RENITA JOYNER [facility] [id number] [facility] 2020-10-31 00:00:00 2020-10-31 00:00:00 Orders Only Doctor Unassigned, [place] [facility] 1.2.840.114 350.1.13.10 4.2.7.2.686 [id number] [facility] 2020-10-31 00:00:00 2020-10-31 00:00:00 Telephone Renita Joyner [facility] 1.2.840.114 350.1.13.10 4.2.7.2.686 [id number] [facility] 2020-10-31 00:00:00 2020-10-31 00:00:00 Orders Only Doctor Unassigned, [place] [facility] 1.2.840.114 350.1.13.10 4.2.7.2.686 [id number] [facility] 2020-10-31 00:00:00 2020-10-31 00:00:00 Telephone Renita Joyner [facility] 1.2.840.114 350.1.13.10 4.2.7.2.686 [id number] [facility] 2020-10-29 00:00:00 2020-10-29 00:00:00 Telephone Renita Joyner [facility] 1.2.840.114 350.1.13.10 4.2.7.2.686 [id number] [facility] 2020-10-20 00:00:00 2020-10-20 00:00:00 Telephone [facility] 1.2.840.114 350.1.13.10 4.2.7.2.686 [id number] [facility] 2020-10-20 00:00:00 2020-10-20 00:00:00 Telephone [facility] 1.2.840.114 350.1.13.10 4.2.7.2.686 [id number] [facility] 2020-10-14 14:35:00 2020-10-16 14:16:00 Hospital Encounter [facility] 1.2.840.114 350.1.13.10 4.2.7.2.686 [id number] [facility] 2020-10-14 14:35:00 2020-10-16 14:16:00 Hospital Encounter [facility] 1.2.840.114 350.1.13.10 4.2.7.2.686 [id number] [facility] 2020-10-14 14:35:00 2020-10-14 14:35:00 Emergency X [facility] ERT [id number] [facility] 2020-09-14 10:29:00 2020-09-14 11:28:00 Emergency Sergio Drummond [facility] 1.2.840.114 350.1.13.10 4.2.7.2.686 [id number] [facility] 2020-09-14 10:29:00 2020-09-14 10:29:00 Emergency X SERGIO DRUMMOND AL ERT [id number] [facility] 2020-07-24 00:00:00 2020-07-24 00:00:00 Transition of Lucia Turner 1.2.840.114 350.1.13.10 4.2.7.2.686 [id number] [facility] 2020-07-21 14:28:00 2020-07-23 17:00:00 Hospital Encounter Kira Julio, Herbert Fong [facility] 1.2.840.114 350.1.13.10 4.2.7.2.686 [id number] [facility] 2020-07-21 14:28:00 2020-07-21 14:28:00 Emergency X [facility] ERT [id number] [facility] 2020-04-19 18:32:00 2020-04-19 22:27:00 Emergency Kira Julio [facility] 1.2.840.114 350.1.13.10 4.2.7.2.686 [id number] [facility] 2020-04-19 18:27:00 2020-04-19 18:27:00 Emergency X [facility] ERT [id number] [facility] 2020-03-12 00:00:00 2020-03-12 00:00:[facility] 1.2.840.114 350.1.13.10 4.2.7.2.686 [id number] [facility] 2020-03-04 00:00:00 2020-03-04 00:00:00 [facility] 1.2.840.114 350.1.13.10 4.2.7.2.686 [id number] [facility] 2020-03-03 00:00:00 2020-03-03 00:00:00 Transition of Care Lucia Driver 1.2840.114 350.1.13.10 4.2.7.2.686 [id number] [facility] 2020-03-02 00:00:00 2020-03-02 00:00:00 Telephone Renita Joyner [facility] 1.2840.114 350.1.13.10 4.2.7.2.686 [id number] [facility] 2020-02-28 03:29:00 2020-02-29 11:30:00 Hospital Encounter Jorge Christiannikki Elizondo Alison Tapiadezfreddy [facility] 1.840.114 350.1.13.10 4.2.7.2.686 [id number] [facility] 2020-02-28 03:21:00 2020-02-28 03:21:00 Emergency X [facility] ERT [id number] [facility] Notes Date/Time Note Provider Source 2024-07-11 22:17:52 Pt given printed and verbal discharge instructions regarding conjunctivitis of left eye. Prescription x1 sent to pharmacy Discussed antibiotic therapy and to take until all completed unless adverse reaction occurs - if occurs, discontinue medication and follow up with pcp/seek medical attention Pt verbalized understanding of instructions, pt awake alert oriented, resp reg unlabored, skin w/d, color appropriate for race, moves all ext well,pt encouraged to follow up with pcp. Advised to seek medical attention for new/prolonged/worsening of symptoms. No adverse reaction to meds given in ER noted upon discharge Awake, alert oriented, resp reg unlabored, skin w/d, pt leaving ambulatory without assist, in no apparent distress, [facility]rix[facility]z [facility] 2024-07-11 22:03:33 ERP at bedside performing eye exam. Medicated per EMAR. Bronwyn Diamond RN 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 Hx MA, heart stents, CABG, HTN, high cholesterol, blood thinners Nedra Ramirez RN [facility] 2024-07-04 13:53:23 Images from the original note were not included. me from pharmacy: Metoprolol Succinate ER 50 MG Oral Tablet Extended Release 24 Hour Will file in chart as: METOPROLOL SUCCINATE XL 50 mg 24 hr tablet Sig: Take 1 tablet by mouth in the morning and 1 tablet in the evening. Original sig: TAKE 1 TABLET BY MOUTH IN THE MORNING AND 1 TABLET IN THE EVENING Disp: 180 tablet Refills: 0 Start: 07/04/2024 Class: eRX Last ordered: 1 year ago (06/07/2023) by Renita Joyner MD Last refill: 02/17/2024 Rx #: [id number] Cardiovascular: Beta Blockers Pvjroz9207/04/2024 12:36 PM Protocol Details Valid encounter within last 12 months Heart rate within normal limits and completed in the last 12 months To be filled at: [address] 04/10/24 Paroxysmal Ventricular Tachycardia (VT) The condition is stable. Stable currently on metoprolol 50 mg twice daily. Requested Prescriptions Signed Prescriptions Disp Refills METOPROLOL SUCCINATE XL 50 mg 24 hr tablet 180 tablet 0 Sig: TAKE 1 TABLET BY MOUTH IN THE MORNING AND 1 TABLET IN THE EVENING Authorizing Provider: RENITA JOYNER Ordering User: LYN KHAN Lyn Khan RN [facility] 2024-04-17 03:34:41 Pt given printed and verbal discharge instructions regarding penile pain, hx of syphillis, balanitis Prescriptions provided: clotrimazole 1 % topical cream doxycycline hyclate 100 mg capsule Pt verbalized understanding of instructions, pt awake alert oriented, resp reg unlabored, skin w/d, color appropriate for race, moves all ext well,pt encouraged to follow up with pcp Advised to seek medical attention for new/prolonged/worsening of symptoms Awake, alert oriented, resp reg unlabored, skin w/d, pt leaving amb with steady gait, in no apparent distress E Lackey RN [facility] 2024-04-17 01:12:03 Patient arrived ambulatory to ED c/o "something you can't wash off, again." Symptoms started a week or two ago. 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 E Sanchez RN [facility] 2024-02-20 10:08:03 Received refill request for: Requested Prescriptions Pending Prescriptions Disp Refills nitroglycerin 0.4 mg sublingual tablet [Pharmacy Med Name: Nitroglycerin 0.4 MG Sublingual Tablet Sublingual] 25 tablet 1 Sig: DISSOLVE ONE TABLET UNDER THE TONGUE EVERY 5 MINUTES NEEDED FOR CHEST PAIN. DO NOT EXCEED A TOTAL OF 3 DOSES IN 15 MINUTES NOEMI: 10/07/23 (Joyner) NOV : 04/10/24 (Joyner) EK04/06/23 Labs: 10/07/23 (Lipid Panel, CMP) Refill approved in compliance with cardiology guidelines. Pharmacy: [address] [facility] 2024-01-07 09:20:32 Written/verbal d/c instructions, out of er no distress E Hughes RN [facility] 2024-01-07 06:33:22 Pt provided with water. Advised of need of urine specimen. Urine cup at bedside. [facility] 2024-01-07 06:25:52 Lawson Wilder is a 68 year old male who presents to the ED for a sore to penile region x 2 weeks. Pt reports being treated for syphilis almost one month ago. Reports completing medications. Endorses burning sensation. Reports clear odorous discharge and urine. Does report recent flu like symptoms x 2 weeks. Reports decreased appetite. PMH of HTN. 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 Patent airway, NAD noted, RR even and unlabored. A&Ox4. E Sheikh RN 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 Denies fever, other rash, arthralgia. Reports mild dysuria. History provided by: Patient and medical records Past Medical History/Immunizations: Past Medical History: Diagnosis Date Alcohol abuse Coronary artery disease involving coronary bypass graft of [place] heart with angina pectoris Depression Heart attack 12/2015 HLD (hyperlipidemia) HTN (hypertension) S/P CABG x 3 2003 S/P coronary artery stent placement 2007 Tetanus received in last 5 years: Unknown Childhood immunizations: Up-to-date Allergies: Allergies Allergen Reactions Penicillin Rash Valium [Diazepam] Anaphylaxis Past Social History: Tobacco Use Former; 3.0 packs/day; Smoked an average of 3.0 packs/day for 20.0 years; Types: Cigarettes Smokeless Tobacco: Never used smokeless tobacco. Comments: Smoke weed, stopped cigarettes in 1998 Alcohol Use Yes; 23.0 standard drinks of alcohol per week; 2 Cans of beer, 21 Standard drinks or equivalent. Comments: 2 beers daily w/ everclear (200 proof liquor) Drug Use Yes; Marijuana; 10 times per week. Comments: current Past Surgical History: Past Surgical History: Procedure Laterality Date CABG, ARTERIAL, THREE LAPAROSCOPIC APPENDECTOMY N/A 02/04/2017 Surgeon: Amber Mcintyre MD; Location: [facility] Review of Systems: Review of Systems Constitutional: Negative for activity change, appetite change, chills, diaphoresis and fatigue. HENT: Negative for congestion, ear discharge, ear pain, facial swelling, mouth sores, sore throat, trouble swallowing and voice change. Eyes: Negative for photophobia, discharge, redness, itching and visual disturbance. Respiratory: Negative for apnea, cough, choking, chest tightness, shortness of breath, wheezing and stridor. Breasts: Negative for discharge and mass. Cardiovascular: Negative for chest pain, palpitations and leg swelling. Gastrointestinal: Negative for abdominal distention, constipation, diarrhea, nausea and vomiting. Genitourinary: Positive for dysuria. Negative for bladder incontinence, frequency, hematuria, flank pain and difficulty urinating. Musculoskeletal: Negative for arthralgias, back pain, gait problem, joint swelling, myalgias, neck pain and neck stiffness. Skin: Positive for wound. Negative for color change, pallor and rash. Neurological: Negative for dizziness, syncope, facial asymmetry, speech difficulty, weakness, light-headedness, numbness and headaches. Psychiatric/Behavioral: Negative for agitation, behavioral problems, confusion and self-injury. Hematological: Negative for adenopathy, cold intolerance and heat intolerance. Does not bruise/bleed easily. Endocrine: Negative for cold intolerance, heat intolerance, polydipsia and polyphagia. Physical Exam: ED Triage Vitals [01/07/24 0624] Weight 72.6 kg (160 lb) Actual or estimated Actual Height 1.88 m (6' 2") BP (!) 166/86 Pulse 51 Resp 16 Temp 36.4 ?C (97.5 ?F) Temp source Oral SpO2 100 % Measured on Room air Physical Exam Constitutional: General: He is not in acute distress. Appearance: He is well-developed. He is not diaphoretic. HENT: Head: Normocephalic and atraumatic. Right Ear: External ear normal. Left Ear: External ear normal. Eyes: General: No scleral icterus. Right eye: No discharge. Left eye: No discharge. Neck: Thyroid: No thyromegaly. Trachea: No tracheal deviation. Cardiovascular: Rate and Rhythm: Normal rate and regular rhythm. Pulmonary: Effort: Pulmonary effort is normal. No respiratory distress. Breath sounds: Normal breath sounds. Abdominal: General: There is no distension. Musculoskeletal: General: No tenderness or deformity. Normal range of motion. Cervical back: Normal range of motion and neck supple. Skin: General: Skin is warm and dry. Coloration: Skin is not pale. Findings: Lesion (single painless ulcer on foreskin of penis c/w syphilis) present. No erythema or rash. Neurological: Mental Status: He is alert and oriented to person, place, and time. Cranial Nerves: No cranial nerve deficit. Sensory: No sensory deficit. Motor: No abnormal muscle tone. Coordination: Coordination normal. Psychiatric: Behavior: Behavior normal. Thought Content: Thought content normal. Judgment: Judgment normal. Radiology: No orders to display Lab Results: Lab Results - No data to display EKG: If EKG completed, see Procedure Note. Orders and Treatments: Orders Placed This Encounter Procedures Urinalysis Gc & Chlamydia Amplified Assay Syphilis IgG/IgM Orders Placed This Encounter Medications cefTRIAXone (ROCEPHIN) injection 500 mg doxycycline hyclate 100 mg capsule First Provider Eval: ED Events Date/Time Event User Comments 01/07/24 0658 Medical Screening Begins SRINIVAS HODGSON MD -- 01/07/24 0717 First Provider Evaluation SRINIVAS HODGSON MD -- ED COURSE Diagnosis/Impression as of 01/07/24 0737 Syphilis Penile ulcer Procedures: Procedures MDM: Medical Decision Making DDx incl syphilis, chancre, UTI, GC, chlamydia, other untested STD's, et al D/w pt rec plan of care and recommended lifestyle changes and comprehensive testing as an outpt. Amount and/or Complexity of Data Reviewed Labs: ordered. Risk Prescription drug management. Flowsheet Documentation: Disposition/Condition: ED Disposition ED Disposition Discharge Condition Stable Comment -- Discharge Medications: Patient's Medications START taking these medications DOXYCYCLINE HYCLATE 100 MG CAPSULE Take 1 capsule by mouth in the morning and 1 capsule in the evening. Do all this for 14 days. CONTINUE taking these medications which have NOT CHANGED ASPIRIN 81 MG CHEWABLE TABLET Take 1 tablet by mouth daily. ATORVASTATIN 80 MG TABLET Take 1 tablet by mouth at bedtime. BEMPEDOIC ACID (NEXLETOL) 180 MG TAB Take 180 mg by mouth in the morning. BLOOD-GL & BP METER,ADULT CUFF ANTONIO Use as directed CLOPIDOGREL (PLAVIX) 75 MG TABLET Take 1 tablet by mouth in the morning. DOXYCYCLINE HYCLATE 100 MG CAPSULE Take 1 capsule by mouth in the morning and 1 capsule in the evening. EMPAGLIFLOZIN (JARDIANCE) 10 MG TABLET Take 1 tablet by mouth in the morning. EZETIMIBE 10 MG TABLET Take 1 tablet by mouth in the morning. Please have labs done in 2 months FOLIC ACID 1 MG TABLET Take 1 tablet by mouth in the morning. LOSARTAN 50 MG TABLET Take 1 tablet by mouth in the morning and 1 tablet in the evening. METOPROLOL SUCCINATE XL 50 MG 24 HR TABLET Take 1 tablet by mouth in the morning and 1 tablet in the evening. NITROGLYCERIN 0.[address] 1 tablet under the tongue every 5 (five) minutes as needed for Chest pain for up to 30 doses. THIAMINE 100 MG TABLET Take 1 tablet by mouth in the morning. START taking Modified Medications as Prescribed No medications on file STOP taking these medications No medications on file Follow-up: Electronically signed by: Srinivas Hodgson MD 01/07/24 0737 [facility] 2023-09-06 11:46:17 PA submitted on [place] for Nexletol 180 mg Lawson Wilder (Meyer: [id number]) PA Rx #: [id number] Need Help? Call us at Status sent iconSent to Plan today Drug Nexletol 180MG tablets ePA cloud logo Form [employer] Electronic PA Form Original Claim Info [id number] T Sherin Deluca RN [facility] 2023-08-31 08:57:21 Images from the original note were not included. Patient notified of results. He verbalized understanding of results/recommendations via teach back. Patient verified that he has been consistently taking the atorvastatin 80 and ezetimibe 10 mg tablet every day. He is agreeable to try Nexletol. No further questions or concerns at this time. Renita Joyner MD P Cardiology Nurse NT-proBNP mildly elevated 488. LDL increased to 103 compared to 2 months ago. CMP within acceptable limits. Elevated blood sugar noted. Magnesium levels normal. Please verify patient's been taking Lipitor 80 mg daily and also Zetia 10 mg daily. If so we need to consider starting Nexletol 180 mg daily if approved by insurance if not Repatha or Praluent. Repeat CMP/lipid labs in around 2 months after initiating Nexletol 180 mg daily. [facility] 2023-08-24 16:15:00 Images from the original note were not included. Venipuncture collection performed by clean technique on the left hand. Total of 1 attempts were made. Slight pressure and a bandage/dressing were applied to the site(s). The patient experienced no complications. The following specimens were processed according to instructions and sent to [facility] laboratories per lab order on 08/24/2023 : LT BLUE SST 1 RED LAV PPT DK GREEN (LiHep) DK GREEN (SodH) ESPINOZA DK BLUE (K2) DK BLUE (S) ACD Blood Culture NIPT/NTD [facility] 2023-06-20 16:07:15 Images from the original note were not included. Patient notified of results. He verbalized understanding of results/recommendations via teach back. He is agreeable to medication recommendations. No further questions or concerns at this time. Renita Joyner MD P Cardiology Nurse CMP within acceptable limits. Mild elevated A1c noted at 6.0. CBC within acceptable stable limits. Lipid panel shows LDL improving currently at 72. Triglyceride normal. Goal LDL needs to be less than 70. Already on Lipitor 80 mg daily. Recommend starting Zetia 10 mg daily to be taken along with Lipitor 80 mg daily. Recommended starting Jardiance 10 mg daily. Please send the prescription to [facility]. Repeat lipid panel in [address] [facility] 2023-06-20 14:44:53 Copied from [facility] #[id number]. Topic: Clinical - Medical Advice >> Jun 20, 2023 2:44 PM Patient Student Affairs Vice President wrote: Lawson Wilder is a 68 year old male Pt is returning call to nurse Please Advise Pia Camara [facility] 2023-06-20 13:52:47 Images from the original note were not included. Attempted to contact patient with results/recommendations. LVM for patient to return call to [phone]. Renita Joyner MD P Cardiology Nurse CMP within acceptable limits. Mild elevated A1c noted at 6.0. CBC within acceptable stable limits. Lipid panel shows LDL improving currently at 72. Triglyceride normal. Goal LDL needs to be less than 70. Already on Lipitor 80 mg daily. Recommend starting Zetia 10 mg daily to be taken along with Lipitor 80 mg daily. Recommended starting Jardiance 10 mg daily. Please send the prescription to [facility]. Repeat lipid panel in [address] [facility] 2023-06-17 13:23:55 Images from the original note were not included. Attempted to contact patient with results/recommendations. [facility] for patient to return call to [phone]. Renita Joyner MD P Cardiology Nurse CMP within acceptable limits. Mild elevated A1c noted at 6.0. CBC within acceptable stable limits. Lipid panel shows LDL improving currently at 72. Triglyceride normal. Goal LDL needs to be less than 70. Already on Lipitor 80 mg daily. Recommend starting Zetia 10 mg daily to be taken along with Lipitor 80 mg daily. Recommended starting Jardiance 10 mg daily. Please send the prescription to [facility]. Repeat lipid panel in 2 months. Orders placed. Renita Joyner MD P Cardiology Nurse NT proBNP stable CMP within acceptable limits. Mild elevated A1c noted at 6.0. CBC within acceptable stable limits. Lipid panel shows LDL improving currently at 72. Triglyceride normal. Goal LDL needs to be less than 70. Already on Lipitor 80 mg daily. Recommend starting Zetia 10 mg daily to be taken along with Lipitor 80 mg daily. Recommended starting Jardiance 10 mg daily. Please send the prescription to [facility]. Repeat lipid panel in 2 months. Orders placed. Maribel Benjamin MA [facility] 2023-06-13 08:15:00 Images from the original note were not included. Venipuncture collection performed by clean technique on the left anticubitus. Total of 1 attempts were made. Slight pressure and a bandage/dressing were applied to the site(s). The patient experienced no complications. The following specimens were processed according to instructions and sent to [facility] laboratories per lab order on 06/13/2023 : LT BLUE SST 1 RED LAV 2 PPT DK GREEN (LiHep) DK GREEN (SodH) ESPINOZA DK BLUE (K2) DK BLUE (S) ACD Blood Culture NIPT/NTD [facility] 2023-06-13 08:15:00 CMP within acceptable limits. Mild elevated A1c noted at 6.0. CBC within acceptable stable limits. Lipid panel shows LDL improving currently at 72. Triglyceride normal. Goal LDL needs to be less than 70. Already on Lipitor 80 mg daily. Recommend starting Zetia 10 mg daily to be taken along with Lipitor 80 mg daily. Recommended starting Jardiance 10 mg daily. Please send the prescription to [facility] campus. Repeat lipid panel in [address] [facility] 2023-06-13 08:15:00 Addended by: RENITA JOYNER on: 06/15/2023 05:47 PM Modules accepted: Orders [facility] 2023-06-10 16:20:29 Addended by: CHER WIN on: 06/10/2023 04:20 PM Modules accepted: Orders [facility] 2023-06-10 16:14:24 Images from the original note were not included. Notified patient per Dr Joyner: June 10, 2023 Renita Joyner MD 06/10/23 1:34 PM Note Records reviewed that was sent. Dose for noncardiac related. We need recent labs in terms of CBC/CMP/lipid panel/A1c. Patient verbal understanding and stated he would get labs done on Tuesday morning. Lab orders placed in [facility]. [facility] 2023-06-10 13:33:42 Records reviewed that was sent. Dose for noncardiac related. We need recent labs in terms of CBC/CMP/lipid panel/A1c. [facility] 2023-06-09 16:07:02 Medical records received via fax from [facility] and placed in Dr Joyner's folder to be reviewed. Cher Win MA [facility] 2023-04-06 14:30:[address] Michel 2.14.24 CYLINDER PRESS OPERATOR Carolann Leggett RN [facility] 2023-04-05 08:56:41 Patient to ED for sore on penis. Said he was treated 2 times for syphilis. Thinks he has it again. CYLINDER PRESS OPERATOR Leonardo Negrete RN [facility] 2023-04-05 08:49:00 Images from the original note were not included. [facility] Emergency Department Note Patient Name: Lawson Wilder Date of : 1955 68 year old male Treatment Room: [facility] ED [facility] ALEXIA/ANTHONY Primary Care Physician: Javier Rodriguez Patient Escorted by: Self [9] Mode of Arrival: Personal means [1] EMS Treatment Prior to ED Arrival: Travel and Exposure Screening: Symptoms Does patient have any of these symptoms?: (not recorded) Exposure Screening Has patient had contact with someone with a communicable disease in the last month?: (not recorded) Diseases exposed to:: (not recorded) Is Patient ?: (not recorded) Exposure Date: (not recorded) Chief Complaint: Chief Complaint Patient presents with Penis/Scrotum Problem STD History of Present Illness: The patient presents from home for evaluation for penile lesion. He believes he has a Forse again. No penile discharge. No dysuria or hematuria. He is sexually active and does not use condoms. He has been with the same woman who gave him syphilis last year. Here for evaluation. Past Medical History/Immunizations: Past Medical History: Diagnosis Date Alcohol abuse Coronary artery disease involving coronary bypass graft of [place] heart with angina pectoris Depression Heart attack 12/2015 HLD (hyperlipidemia) HTN (hypertension) S/P CABG x 3 2003 S/P coronary artery stent placement 2007 Allergies: Allergies Allergen Reactions Penicillin Rash Valium [Diazepam] Anaphylaxis Past Social History: Tobacco Use Former; 3.00 packs/day for 20.00 years; Types: Cigarettes Smokeless Tobacco: Never used smokeless tobacco. Comments: Smoke weed, stopped cigarettes in 1998 Alcohol Use Yes; 23.0 standard drinks of alcohol per week; 2 Cans of beer, 21 Standard drinks or equivalent. Comments: 2 beers daily w/ everclear (200 proof liquor) Drug Use Yes; Marijuana; 10 times per week. Comments: current Past Surgical History: Past Surgical History: Procedure Laterality Date CABG, ARTERIAL, THREE LAPAROSCOPIC APPENDECTOMY N/A 02/04/2017 Surgeon: Amber Mcintyre MD; Location: [facility] Review of Systems: Review of Systems Constitutional: Negative for chills and fever. Respiratory: Negative for cough. Cardiovascular: Negative for chest pain. Gastrointestinal: Negative for abdominal pain and vomiting. Genitourinary: Negative for dysuria and discharge. Musculoskeletal: Negative for neck pain and neck stiffness. Skin: Positive for rash. Neurological: Negative for dizziness. Psychiatric/Behavioral: Negative for agitation. Endocrine: Negative for goiter. Physical Exam: ED Triage Vitals [04/05/23 0857] Weight 70.3 kg (155 lb) Actual or estimated Height 1.88 m (6' 2") BP (!) 202/110 Pulse 100 Resp 20 Temp 36.9 ?C (98.4 ?F) Temp src SpO2 100 % Measured on Physical Exam Vitals and nursing note reviewed. Exam conducted with a customer professional present. Constitutional: Appearance: Normal appearance. HENT: Head: Normocephalic and atraumatic. Cardiovascular: Rate and Rhythm: Normal rate. Pulses: Normal pulses. Pulmonary: Effort: Pulmonary effort is normal. Abdominal: General: There is no distension. Genitourinary: Penis: Circumcised. Testes: Normal. Musculoskeletal: General: Normal range of motion. Cervical back: Neck supple. Skin: General: Skin is warm. Neurological: General: No focal deficit present. Mental Status: He is alert. Radiology: No orders to display Lab Results: Lab Results - No data to display EKG: If EKG completed, see Procedure Note. Orders and Treatments: Orders Placed This Encounter Procedures Syphilis IgG/IgM RPR (Quantitative) Orders Placed This Encounter Medications doxycycline hyclate 100 mg capsule First Provider Eval: ED Events Date/Time Event User Comments 04/05/23852 Medical Screening Begins BRENDA ELMORE DO -- 04/05/23 0853 First Provider Evaluation BRENDA ELMORE DO -- ED COURSE Diagnosis/Impression as of 04/05/23 0908 Penile lesion Procedures: Procedures MDM: Medical Decision Making The patient presents from home for evaluation for penile lesion that he believes is syphilis. He had syphilis in the past and thinks he has it again. No penile discharge. No dysuria hematuria. He is sexually active and does not wear a condom. He reports he is still with the same woman who gave him syphilis last year. Vital signs are stable in the ER. His abdomen is soft and nontender. He is circumcised. He has a small ulcer noted on the right side of his penis between the glans and the shaft. Will send an RPR. Will initiate treatment with doxycycline as the patient is allergic to penicillin. He remained stable here in the ER and is okay for discharge home with PCP follow-up. Advised him to practice safe sex every time. Problems Addressed: Penile lesion: acute illness or injury Amount and/or Complexity of Data Reviewed Labs: ordered. Decision-making details documented in ED Course. Risk Prescription drug management. Flowsheet Documentation: Scoring Tools: No data recorded Disposition/Condition: ED Disposition ED Disposition Disch - Home Condition Stable Comment -- Discharge Medications: Patient's Medications START taking these medications DOXYCYCLINE HYCLATE 100 MG CAPSULE Take 1 capsule by mouth in the morning and 1 capsule in the evening. CONTINUE taking these medications which have NOT CHANGED ASPIRIN 81 MG CHEWABLE TABLET Take 1 tablet by mouth daily. ATORVASTATIN 80 MG TABLET Take 1 tablet by mouth at bedtime. BLOOD-GL & BP METER,ADULT CUFF ANTONIO Use as directed CARVEDILOL (COREG) 25 MG TABLET Take 1 tablet by mouth in the morning and 1 tablet in the evening. Take with meals. CLOPIDOGREL (PLAVIX) 75 MG TABLET Take 1 tablet by mouth daily. FOLIC ACID 1 MG TABLET Take 1 tablet by mouth in the morning. LOSARTAN 50 MG TABLET Take 1 tablet by mouth in the morning and 1 tablet in the evening. METOPROLOL SUCCINATE XL 50 MG 24 HR TABLET TAKE 1 TABLET BY MOUTH IN THE MORNING NITROGLYCERIN 0.[address] 1 tablet under the tongue every 5 (five) minutes as needed for Chest pain for up to 30 doses. SPIRONOLACTONE 25 MG TABLET Take 1 tablet by mouth in the morning. THIAMINE 100 MG TABLET Take 1 tablet by mouth in the morning. START taking Modified Medications as Prescribed No medications on file STOP taking these medications DOXYCYCLINE HYCLATE 100 MG CAPSULE Take 1 capsule by mouth in the morning and 1 capsule in the evening. Follow-up: Electronically signed by: Brenda Elmore DO 04/05/23 0908 [facility] 2023-04-05 08:43:12 Pt is needing a mediation refill. [facility] 2022-10-21 22:54:21 Formatting of this n ote might be different from the original. Pt given printed and verbal discharge instructions regarding syphilis, encouraged increased fluids Printed prescriptions provided Discussed antibiotic therapy and to take until all completed unless adverse reaction occurs - if occurs, discontinue medication and follow up with pcp/seek medical attention Pt verbalized understanding of instructions, pt awake alert oriented, resp reg unlabored, skin w/d, color appropriate for race, educated on use of access center for appointment and estab of PCP as well as given info on local clinics, encouraged to follow up with pcp in 3-5 days Advised to seek medical attention for new/prolonged/worsening of symptoms No adverse reaction to meds given in ER noted upon discharge PIV d'cd, dressing to site, catheter in tact. Pt leaving ambulatory in NAD. Jaelyn Anguiano RN [facility] 2022-10-21 21:08:03 Formatting of this n ote might be different from the original. Lawson Wilder is a 67 year old male presents to the ED ambulatory cc skin problem. Patient reports being on abx for a week for "yeast infection for my penis" and "skin thing in chin" Patient reports seeing provider at 4 pm today and being sent home with abx again "that dont work." Patient alert and oriented x4. RR even and unlabored. Sent to [address] [facility] 2022-10-21 21:04:00 Formatting of this n ote is different from the original. Images from the original note were not included. [facility] Emergency Department Note Patient Name: Lawson Wilder Date of : 1955 67 year old male Treatment Room: [address] [place] [address] Primary Care Physician: Javier Rodriguez Patient Escorted by: Self [9] Mode of Arrival: Personal means [1] EMS Treatment Prior to ED Arrival: [employer] [facility] treatment comments: Prescribed abx by urgent care Travel and Exposure Screening: Symptoms Does patient have any of these symptoms?: (not recorded) Exposure Screening Has patient had contact with someone with a communicable disease in the last month?: (not recorded) Diseases exposed to:: (not recorded) Is Patient ?: (not recorded) Exposure Date: (not recorded) Chief Complaint: Chief Complaint Patient presents with Skin Problem History of Present Illness: Lawson Wilder is a 67 year old male presents to the ED ambulatory cc skin problem. Patient reports being on abx for a week for "yeast infection for my penis" and "skin thing in chin" Patient reports seeing provider at 4 pm today and being sent home with abx again "that dont work." Patient alert and oriented x4. RR even and unlabored History provided by: Patient asl interpreter used: No Skin Problem Location: Non healing scab in his chin, red dots in his hands palms and ulceration in his penis Severity: Moderate Onset quality: Gradual Duration: 3 weeks Timing: Constant Progression: Worsening Chronicity: New Relieved by: Nothing, patient has been of 2 antibiotics, Rifampicin and Bactrim as well as Fluconazole Worsened by: Nothing Ineffective treatments: As above Associated symptoms: rash Associated symptoms: no abdominal pain, no chest pain, no congestion, no cough, no fatigue, no fever, no headaches, no myalgias, no nausea, no rhinorrhea, no shortness of breath, no sore throat, no vomiting and no wheezing Associated symptoms comment: None Past Medical History/Immunizations: Past Medical History: Diagnosis Date Alcohol abuse Coronary artery disease involving coronary bypass graft of [place] heart with angina pectoris Depression Heart attack 12/2015 HLD (hyperlipidemia) HTN (hypertension) S/P CABG x 3 2003 S/P coronary artery stent placement 2007 Tetanus received in last 5 years: Unknown Childhood immunizations: Up-to-date Allergies: Allergies Allergen Reactions Penicillin Rash Valium [Diazepam] Anaphylaxis Past Social History: Tobacco Use Former; 3.00 packs/day for 20.00 years; Types: Cigarettes Smokeless Tobacco: Never used smokeless tobacco. Comments: Smoke weed, stopped cigarettes in 1998 Alcohol Use Yes; 23.0 standard drinks of alcohol per week; 2 Cans of beer, 21 Standard drinks or equivalent. Comments: 2 beers daily w/ everclear (200 proof liquor) Drug Use Yes; Marijuana; 10 times per week. Comments: current Past Surgical History: Past Surgical History: Procedure Laterality Date CABG, ARTERIAL, THREE LAPAROSCOPIC APPENDECTOMY N/A 02/04/2017 Surgeon: Amber Mcintyre MD; Location: [facility] Review of Systems: Review of Systems Constitutional: Negative for chills, diaphoresis, fatigue and fever. HENT: Negative for congestion, rhinorrhea, sore throat and trouble swallowing. Eyes: Negative for photophobia, pain, discharge and redness. Respiratory: Negative for cough, chest tightness, shortness of breath and wheezing. Cardiovascular: Negative for chest pain, palpitations and leg swelling. Gastrointestinal: Negative for abdominal distention, abdominal pain, blood in stool, constipation, nausea and vomiting. Genitourinary: Positive for penile swelling. Negative for dysuria, urgency, polyuria, frequency, hematuria, flank pain and discharge. Musculoskeletal: Negative for arthralgias, joint swelling, myalgias and neck stiffness. Skin: Positive for rash. Negative for color change and wound. Neurological: Negative for dizziness, seizures, syncope, facial asymmetry, weakness, light-headedness, numbness and headaches. Psychiatric/Behavioral: Negative for agitation, confusion, hallucinations and self-injury. The patient is not nervous/anxious. Hematological: Negative for adenopathy and cold intolerance. Does not bruise/bleed easily. Endocrine: Negative for cold intolerance, polydipsia and polyuria. Physical Exam: ED Triage Vitals [10/21/222107] Weight 68 kg (150 lb) Actual or estimated Height 1.829 m (6') BP (!) 196/99 Pulse 77 Resp 18 Temp 36.8 ?C (98.2 ?F) Temp src SpO2 98 % Measured on Room air Physical Exam Vitals and nursing note reviewed. Constitutional: General: He is awake. He is not in acute distress. Appearance: He is well-developed, well-groomed and normal weight. He is not ill-appearing, toxic-appearing or diaphoretic. HENT: Head: Normocephalic and atraumatic. Right Ear: External ear normal. Left Ear: External ear normal. Nose: Nose normal. Mouth/Throat: Pharynx: No oropharyngeal exudate. Eyes: General: No scleral icterus. Right eye: No discharge. Left eye: No discharge. Conjunctiva/sclera: Conjunctivae normal. Pupils: Pupils are equal, round, and reactive to light. Neck: Thyroid: No thyromegaly. Vascular: No JVD. Trachea: No tracheal deviation. Comments: Enlarged and tender adenopathy under his chin Cardiovascular: Rate and Rhythm: Normal rate and regular rhythm. Heart sounds: Normal heart sounds. No murmur heard. No friction rub. No gallop. Pulmonary: Effort: Pulmonary effort is normal. No respiratory distress. Breath sounds: Normal breath sounds. No stridor. No wheezing or rales. Chest: Chest wall: No tenderness. Abdominal: General: Bowel sounds are normal. There is no distension. Palpations: Abdomen is soft. There is no mass. Tenderness: There is no abdominal tenderness. There is no guarding or rebound. Genitourinary: Pubic Area: No rash or pubic lice. Penis: Erythema and lesions present. No discharge. Testes: Right: Mass, tenderness or swelling not present. Left: Mass, tenderness or swelling not present. Musculoskeletal: General: No tenderness or deformity. Normal range of motion. Cervical back: Normal range of motion and neck supple. Lymphadenopathy: Head: Right side of head: Submental adenopathy present. Cervical: No cervical adenopathy. Skin: General: Skin is warm and dry. Coloration: Skin is not pale. Findings: Rash present. No erythema. Rash is macular. Comments: Macular rash affecting the palms of his hands Neurological: Mental Status: He is alert and oriented to person, place, and time. Cranial Nerves: No cranial nerve deficit. Motor: No abnormal muscle tone. Coordination: Coordination normal. Deep Tendon Reflexes: Reflexes are normal and symmetric. Reflexes normal. Psychiatric: Behavior: Behavior normal. Behavior is cooperative. Thought Content: Thought content normal. Judgment: Judgment normal. MEDIA INFORMATION: Radiology: No orders to display Lab Results: Lab Results CBC WITH DIFF - Abnormal Result Value Ref Range WBC 5.91 4.20 - 10.70 10*3/?L RBC 4.29 4.26 - 5.52 10*6/?L HGB 13.9 12.2 - 16.4 g/dL HCT 39.5 38.4 - 49.3 % MCV 92.1 81.7 - 95.6 fL MCH 32.4 26.1 - 32.7 pg MCHC 35.2 (*) 31.2 - 35.0 g/dL RDW-SD 42.1 38.5 - 51.6 fL RDW-CV 12.5 12.1 - 15.4 % PLT 253 150 - 328 10*3/?L MPV 9.8 9.8 - 13.0 fL NRBC/100 WBC 0.0 0.0 - 10.0 /100 WBCs NRBC x10^3 <0.01 10*3/?L GRAN MAT (NEUT) % 49.8 % IMM GRAN % 0.20 % LYMPH % 33.7 % MONO % 14.4 % EOS % 1.2 % BASO % 0.7 % GRAN MAT x10^3(ANC) 2.95 1.99 - 6.95 10*3/uL IMM GRAN x10^3 <0.03 0.00 - 0.06 10*3/uL LYMPH x10^3 1.99 1.09 - 3.23 10*3/uL MONO x10^3 0.85 0.36 - 1.02 10*3/uL EOS x10^3 0.07 0.06 - 0.53 10*3/uL BASO x10^3 0.04 0.01 - 0.09 10*3/uL BASIC METABOLIC PANEL (NA, K, CL, CO2, GLUCOSE, BUN, CREATININE, CA) - Abnormal NA 133 (*) 135 - 145 mmol/L K 4.3 3.5 - 5.0 mmol/L CL 99 98 - 108 mmol/L CO2 TOTAL 25 23 - 31 mmol/L AGAP 9 2 - 16 BUN 12 7 - 23 mg/dL GLUCOSE 182 (*) 70 - 110 mg/dL CREATININE 0.70 0.60 - 1.25 mg/dL CALCIUM 8.8 8.6 - 10.6 mg/dL eGFR 112.1 mL/min/1.73m2 SYPHILIS IGG/IGM GC & CHLAMYDIA AMPLIFIED ASSAY EKG: If EKG completed, see Procedure Note. Orders and Treatments: Orders Placed This Encounter Procedures SYPHILIS IGG/IGM GC & CHLAMYDIA AMPLIFIED ASSAY CBC WITH DIFF BASIC METABOLIC PANEL (NA, K, CL, CO2, GLUCOSE, BUN, CREATININE, CA) Orders Placed This Encounter Medications enalaprilat (VASOTEC I.V.) injection 2.5 mg azithromycin (ZITHROMAX) tablet 2,000 mg First Provider Eval: ED Events Date/Time Event User Comments 10/21/222106 Medical Screening Begins OLI THEODORE -- 10/21/222106 First Provider Evaluation OLI THEODORE -- No notes of EC Admission Criteria type on file. ED COURSE Patient's condition stable, he already received empiric treatment for Secondary Syphilis with 2 grs of PO Azithromycin, but due to resistance concerns, I will discharge him on Doxycycline 100 mg PO BID x 14 days and I will refer him to ID for further evaluation and treatment. 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 Decision-making details documented in ED Course. Details: Ig G and Ig M for Syphilis ordered, as well as GC/Chlamydia Patient referred to Infectious Diseases for STAT Eval Consult Risk Prescription drug management. Diagnosis or treatment significantly limited by social determinants of health. Flowsheet Documentation: Scoring Tools: No data recorded Disposition/Condition: ED Disposition None Discharge Medications: Patient's Medications START taking these medications No medications on file CONTINUE taking these medications which have NOT CHANGED ASPIRIN 81 MG CHEWABLE TABLET Take 1 tablet by mouth daily. ATORVASTATIN 80 MG TABLET Take 1 tablet by mouth at bedtime. BLOOD-GL & BP METER,ADULT CUFF ANTONIO Use as directed CARVEDILOL (COREG) 25 MG TABLET Take 1 tablet by mouth in the morning and 1 tablet in the evening. Take with meals. CLOPIDOGREL (PLAVIX) 75 MG TABLET Take 1 tablet by mouth daily. FOLIC ACID 1 MG TABLET Take 1 tablet by mouth in the morning. LOSARTAN 50 MG TABLET Take 1 tablet by mouth in the morning and 1 tablet in the evening. NITROGLYCERIN 0.[address] 1 tablet under the tongue every 5 (five) minutes as needed for Chest pain for up to 30 doses. SPIRONOLACTONE 25 MG TABLET Take 1 tablet by mouth in the morning. THIAMINE 100 MG TABLET Take 1 tablet by mouth in the morning. START taking Modified Medications as Prescribed No medications on file STOP taking these medications No medications on file Follow-up: Electronically signed by: Kvng Hnaks MD 10/21/[address] [facility]
[2024-07-12] MEDS ORDERED: TETRACAINE HCL 0.5% 4ML OPTH ONE (00:09)
[2024-07-12] MEDS ORDERED: FLUORESCEIN SODIUM 1 MG/WRAP ONE (00:27)
--- NOTE | 2024-07-12 00:34 | EDPHYS ---
Physician Documentation [facility] Name: Lawson Yost Age: 69 yrs Sex: Male : 1955 Arrival Date: 07/11/2024 Time: 23:44 Bed 15 Private MD: ED Physician Paul Guadalupe HPI: 07/12 00:32 This 69 yrs old Male presents to ER via Ambulatory with complaints of Foreign Body In rn Eye. 00:32 Patient reports foreign body sensation in left eye. Just left [facility] emergency room rn and told no corneal abrasion or foreign body. Discharged with numbing medicine and antibiotics for the eye. Reports still has foreign body sensation so came in for second opinion. Historical: - Allergies: 07/11 23:57 PENICILLINS; al5 23:57 Valium; al5 - PMHx: 23:57 Hypercholesterolemia; Hypertensive disorder; al5 - PSHx: 23:57 Coronary artery bypass graft; Stented artery; al5 - Immunization history:: Adult Immunizations up to date. - Infectious Disease History:: Denies. - Social history:: Smoking status: unknown. - Family history:: not pertinent. - Hospitalizations: : No recent hospitalization is reported. ROS: 07/12 00:32 Constitutional: Negative for fever, chills, and weight loss, Eyes: Positive for left rn eye foreign body sensation Exam: 00:32 Constitutional: This is a well developed, well nourished patient who is awake, alert, rn and in no acute distress. Eyes: No foreign body identified. Improved with tetracaine and irrigation. Corneal abrasion noted at 10 o'clock position. Negative Ruddy sign. Lids everted Vital Signs: 07/11 23:56 BP 160 / 90; Pulse 60; Resp 16; Temp 97.6; Pulse Ox 100% on R/A; Weight 74.84 kg; al5 Height 6 ft. 2 in. ; 23:56 Body Mass Index 21.18 (74.84 kg, 187.96 cm) al5 MDM: 23:48 Medical Screening Exam initiated rn 07/12 00:32 Differential diagnosis: Corneal abrasion of left eye. Foreign body in left eye. Data rn reviewed: vital signs, nurses notes, and as a result, I will discharge patient. Special discussion: I discussed with the patient/guardian in detail that at this point there is no indication for admission to the hospital. It is understood, however, that if the symptoms persist or worsen the patient needs to return immediately for re-evaluation. Based on the history and exam findings, there is no indication for further emergent testing or inpatient evaluation. I discussed with the patient/guardian the need to see the opthamologist for further evaluation of the symptoms. Administered Medications: 00:15 Drug: Tetracaine Ophthalmic Drops 0.5 % 1 drops Ophthalmic once Route: Ophthalmic; rg5 Site: left eye; Disposition Summary: 07/12/24 00:34 Discharge Ordered Notes: Location: Home rn Problem: new rn Symptoms: have improved rn Condition: Stable rn Diagnosis - Injury of conjunctiva and corneal abrasion without foreign body, left eye rn Followup: rn - With: Private Physician - When: As needed - Reason: Recheck today's complaints, Re-evaluation by your physician Discharge Instructions: - Discharge Summary Sheet rn - Corneal Abrasion rn Forms: - Medication Reconciliation Form rn - 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
--- NOTE | 2024-07-12 00:34 | ER ---
Nurse's Notes [facility] Name: Lawson Yost Age: 69 yrs Sex: Male : 1955 Arrival Date: 07/11/2024 Time: 23:44 Bed 15 Private MD: Diagnosis: Injury of conjunctiva and corneal abrasion without foreign body, left eye Presentation: 07/11 23:56 Chief complaint: Patient states: was BBQing all day, walked over to his truck and was al5 hit in the eye with something, is not sure what. c/o L eye pain and redness. Coronavirus screen: At this time, the client does not indicate any symptoms associated with coronavirus-19. Ebola Screen: No symptoms or risks identified at this time. Initial Sepsis Screen: Does the patient meet any 2 criteria? No. Patient's initial sepsis screen is negative. Does the patient have a suspected source of infection? No. Patient's initial sepsis screen is negative. Risk Assessment: Do you want to hurt yourself or someone else? Patient reports no desire to harm self or others. Onset of symptoms was July 11, 2024. 23:56 Method Of Arrival: Ambulatory al5 23:56 Acuity: CIPRIANO 4 al5 Triage Assessment: 23:57 General: Appears in no apparent distress. comfortable, Behavior is calm, cooperative. al5 Pain: Complains of pain in left eye. EENT: No signs and/or symptoms were reported regarding the EENT system. Neuro: Level of Consciousness is awake, alert, obeys commands, Oriented to person, place, time, situation. Cardiovascular: Capillary refill < 3 seconds Patient's skin is warm and dry. Respiratory: Airway is patent Respiratory effort is even, unlabored, Respiratory pattern is regular, symmetrical. GI: No signs and/or symptoms were reported involving the gastrointestinal system. : No signs and/or symptoms were reported regarding the genitourinary system. Derm: Skin is intact, is healthy with good turgor, Skin is pink, warm \T\ dry. normal. Musculoskeletal: No signs and/or symptoms reported regarding the musculoskeletal system. Historical: - Allergies: 23:57 PENICILLINS; al5 23:57 Valium; al5 - PMHx: 23:57 Hypercholesterolemia; Hypertensive disorder; al5 - PSHx: 23:57 Coronary artery bypass graft; Stented artery; al5 - Immunization history:: Adult Immunizations up to date. - Infectious Disease History:: Denies. - Social history:: Smoking status: unknown. - Family history:: not pertinent. - Hospitalizations: : No recent hospitalization is reported. Screenin/22 00:00 [facility] ED Fall Risk Assessment (Adult) History of falling in the last 3 months, al5 including since admission No falls in past 3 months (0 pts) Confusion or Disorientation No (0 pts) Intoxicated or Sedated No (0 pts) Impaired Gait No (0 pts) Mobility Assist Device Used No (0 pt) Altered Elimination No (0 pt) Score/Fall Risk Level 0 - 2 = Low Risk Oriented to surroundings, Maintained a safe environment, Hourly rounding (assess needs \T\ fall precautionary measures) done. Abuse screen: Denies threats or abuse. Denies injuries from another. Nutritional screening: No deficits noted. Tuberculosis screening: No symptoms or risk factors identified. Assessment: 07/11 23:59 Reassessment: see triage assessment. al5 07/12 00:30 Reassessment: irrigated L eye with saline, patient tolerated well. al5 Vital Signs: 07/11 23:56 BP 160 / 90; Pulse 60; Resp 16; Temp 97.6; Pulse Ox 100% on R/A; Weight 74.84 kg; al5 Height 6 ft. 2 in. ; 23:56 Body Mass Index 21.18 (74.84 kg, 187.96 cm) al5 ED Course: 23:47 Patient arrived in ED. [id number] 23:48 Paul Guadalupe MD is Attending Physician. rn 23:56 Jaelyn Castle RN is Primary Nurse. al5 23:57 Triage completed. al5 23:57 Arm band placed on right wrist. Patient placed in the treatment room, in view of staff al5 members, on pulse oximetry. 07/12 00:00 Patient has correct armband on for positive identification. Bed in low position. Call al5 light in reach. Side rails up X 1. Provided Education on: plan of care. 00:00 No provider procedures requiring assistance completed. Patient did not have IV access al5 during this emergency room visit. Administered Medications: 00:15 Drug: Tetracaine Ophthalmic Drops 0.5 % 1 drops Ophthalmic once Route: Ophthalmic; rg5 Site: left eye; Medication: 00:00 VIS not applicable for this client. al5 Outcome: 00:34 Discharge ordered by . rn 00:47 Discharged to home ambulatory, al5 00:47 Condition: good 00:47 Discharge instructions given to patient, Instructed on discharge instructions, follow up and referral plans. Demonstrated understanding of instructions, follow-up care, 00:48 Patient left the ED. al5 Signatures: Paul Guadalupe MD MD rn Jeffries, Jennifer [email or web address] Landry Chi RN RN rg5 Jaelyn Castle RN RN al5 Corrections: (The following items were deleted from the chart) 07/11 23:59 23:57 Allergies: No Known Allergies; al5 al5 2359 23:57 PMHx: None; al5 al5
[2024-07-12 01:18] VITALS: BP 160/90; TEMP 97.6; O2SAT 100
== END 2024-07-12 00:48 | disposition home or self-care (01) ==
LOC: ER 23:44
DX: S05.02XA Injury of conjunctiva and corneal abrasion without foreign body, left eye, initial encounter (principal)
CPT/HCPCS: 99283